=== PATIENT | male | born 1980 | race Caucasian/White ===

== ENCOUNTER 2019-05-06 09:53 | Emergency (ER) | payer MEDICAID, OTHER ==
[~2019-05-06] VITALS: Ht 170.2 cm; Wt 70.0 kg
[~2019-05-06 09:53] MED LIST: IBUP-1984 PO
[2019-05-06 11:46] VITALS: BP 123/79
== END 2019-05-06 12:34 | disposition home or self-care (01) ==
LOC: ER 09:53
DX: R10.31 Right lower quadrant pain (principal); R10.32 Left lower quadrant pain; G89.29 Other chronic pain; F10.99 Alcohol use, unspecified with unspecified alcohol-induced disorder; Z88.5 Allergy status to narcotic agent; Z79.899 Other long term (current) drug therapy; Y90.9 Presence of alcohol in blood, level not specified
CPT/HCPCS: 76705; 99284

== ENCOUNTER 2019-08-01 10:53 | Emergency (ER) | payer MEDICAID ==
[~2019-08-01] VITALS: Ht 154.9 cm; Wt 68.0 kg
[2019-08-01 11:09] VITALS: BP 137/93
== END 2019-08-01 11:58 | disposition left against medical advice (07) ==
LOC: ER 10:54
DX: Z00.8 Encounter for other general examination (principal); Z53.21 Procedure and treatment not carried out due to patient leaving prior to being seen by health care provider

== ENCOUNTER 2019-09-10 07:28 | Day surgery (SDC) | payer MEDICAID ==
[2019-09-06 11:05] LABS: BASOPHILS # (AUTO) 0.1 X10'3 (0-0.2); EOSINOPHILS # (AUTO) 0.2 X10'3 (0-0.9); EOSINOPHILS % (AUTO) 1.7 % (0-6); LYMPHOCYTES # (AUTO) 2.5 X10'3 (1.1-4.8); LYMPHOCYTES % (AUTO) 26.9 % (21-51); MEAN CORPUSCULAR HEMOGLOBIN 30.9 PG (27.0-31.0); MEAN CORPUSCULAR HGB CONC 33.8 g/dL (33.0-36.5); MEAN CORPUSCULAR VOLUME 91.4 FL (78-98); MEAN PLATELET VOLUME 8.4 FL (7.4-10.4); MONOCYTES # (AUTO) 0.9 X10'3 (0-0.9); MONOCYTES % (AUTO) 10.1 % (2-12); NEUTROPHILS # (AUTO) 5.6 X10'3 (1.8-7.7); NEUTROPHILS % (AUTO) 60.3 % (42-75); PRE OP HEMATOCRIT 41.4 % (42.0-52.0); PRE OP PLATELET COUNT 314 X10'3 (140-440); RED BLOOD COUNT 4.53 X10'6 (4.70-6.10); RED CELL DISTRIBUTION WIDTH 13.1 % (11.5-14.5)
[2019-09-06 11:18] LABS: ALBUMIN 3.9 G/DL (3.4-5.0); ALBUMIN/GLOBULIN RATIO 1.1 (1.1-1.5); ALKALINE PHOSPHATASE 84 IU/L (46-116); BLOOD UREA NITROGEN 16 MG/DL (7-18); BUN/CREATININE RATIO 16.3 (5.4-32.0); CALCIUM 8.5 MG/DL (8.5-10.1); CHLORIDE 106 MMOL/L (99-107); CREATININE 0.98 MG/DL (0.60-1.10); PRE OP ALT 27 U/L (30-65); PRE OP ANION GAP 3 (8-16); PRE OP AST 17 U/L (10-37); PRE OP BILIRUB, TOTAL 0.2 MG/DL (0.0-1.0); PRE OP GLUCOSE 109 MG/DL (70-104); PRE OP SODIUM 139 MMOL/L (135-145); TOTAL CARBON DIOXIDE 30.2 MMOL/L (24-32); TOTAL PROTEIN 7.3 G/DL (6.4-8.2); eGFR 85 ML/MIN
[~2019-09-10] VITALS: Ht 171.4 cm; Wt 70.0 kg
[2019-09-10] VITALS (9 sets, daily range): BP systolic 111–135; BP diastolic 71–96
[~2019-09-10 07:28] MED LIST changes: +BUPIVAcaine/PF 2.5 mg/ml (0.25%) 30ml vial ONE; +LIDOcaine 1% 30ml preserv. free vial ONE; +famotidine 10mg tablet PO ONE
[2019-09-10] MEDS: ringers solution, lacted 1,000 ML IV SCH ×2 (07:43→08:10)
[2019-09-10] MEDS ORDERED: ceFAZolin 2gm in dextrose, iso 100 ML IV ONE (07:55)
[2019-09-10] MEDS ORDERED: ringers solution, lacted 1,000 ML IV SCH (08:27)
[2019-09-10] MEDS ORDERED: meperidine/PF 25mg/ml syringe IV PRN ×3 (08:30)
[2019-09-10] MEDS ORDERED: proCHLORperazine 10 MG/2 ml inj IV PRN (08:30)
[2019-09-10] MEDS ORDERED: ondansetron/PF 4mg/2ml inj IV PRN (08:30)
[2019-09-10] MEDS ORDERED: morphine 4 MG/ML inj SYRINge IV PRN ×2 (08:30)
[2019-09-10] MEDS ORDERED: sevoflurane 250ml liquid IH ONE (08:54)
[2019-09-10] MEDS ORDERED: midazolam 2 mg/2 ml injection ONE (09:01)
[2019-09-10] MEDS ORDERED: fentaNYL/PF 50MCG/1 ML 2ML syringe ONE (09:01)
[2019-09-10] MEDS ORDERED: propofol inj 20 ML IV ONE (09:53)
[2019-09-10] MEDS ORDERED: rocuronium 10mg/ml inj IV ONE (09:53)
[2019-09-10] MEDS ORDERED: dexamethasone sod phosphate 4mg/ml inj. ONE (09:53)
[2019-09-10] MEDS ORDERED: ondansetron/PF 4mg/2ml inj ONE (09:53)
[2019-09-10] MEDS ORDERED: neostigmine methylsulfate 1 MG/ML 10ml vial ONE (10:02)
[2019-09-10] MEDS ORDERED: glycopyrrolate 0.2mg/ml inj ONE (10:02)
--- NOTE | 2019-09-10 10:25 | NUR ---
Received from OR via BED , accompanied by Anesthesiologist DR TRIPLETT and report given by Anesthesiolgist. PATIENT WAKING UP, DENIES PAIN, V/S WNL, NEUROVASCULAR CHECKS INTACT, 20G PIV LUE, SCD ON, BANDAIDS TO LAP SIGHTS OF ABDOMEN CDI.
[2019-09-10] MEDS ORDERED: HYDROcodone/acetaminophen 5mg/325mg tablet PO PRN (10:35)
[2019-09-10] MEDS ORDERED: acetaminophen 1,000mg/100ml IV 100 ML IV ONE (10:35)
[2019-09-10] MEDS ORDERED: ibuprofen tablet 400 MG TABLET PO ONE (10:35)
--- NOTE | 2019-09-10 11:25 | NUR ---
PATIENT A&OX4, DENIES PAIN, V/S WNL, NEUROVASCULAR CHECKS INTACT, 20G PIV LUE D/C, SCD OFF, BANDAIDS TO LAP SIGHTS OF ABDOMEN CDI.. I HAVE REVIEWED D/C INSTRUCTIONS WITH PATIENT AND FAMILY HAVE VERBALIZED UNDERSTANDING.PATIENT WAS D/C HOME WITH ALL BELONGINGS AND FAMILY GAVE TRANSPORT HOME.
== END 2019-09-10 11:25 | disposition home or self-care (01) ==
LOC: PAS 07:28
PROVIDERS: ATTEND Surgery
DX: K40.90 Unilateral inguinal hernia, without obstruction or gangrene, not specified as recurrent (principal); Z88.5 Allergy status to narcotic agent; Z87.891 Personal history of nicotine dependence; Z79.899 Other long term (current) drug therapy
CPT/HCPCS: 36415; 49650; 80053; 82948; 85025; 93005; C1781; J0131; J1100; J2001; J2250; J2405; J2704; J2710; J3010; J3490; S2900; A4215; A4618; J7120

== ENCOUNTER 2022-04-29 20:47 | Emergency (ER) | payer MEDICAID ==
[~2022-04-29] VITALS: Ht 170.2 cm; Wt 72.7 kg
[~2022-04-29 20:47] MED LIST changes: -BUPIVAcaine/PF 2.5 mg/ml (0.25%) 30ml vial ONE; -LIDOcaine 1% 30ml preserv. free vial ONE; -famotidine 10mg tablet PO ONE
[2022-04-29 21:08] VITALS: BP 154/93
--- NOTE | 2022-04-29 22:04 | NUR ---
PT INSTRUCTED TO REMOVE PANTS SO MD CAN PREFORM AN EXAMINATION. PT STATED HE ISNT GOINGTO DO THAT AND SAID HE WAS LEAVING. PT ELOPED MD INFORMED
== END 2022-04-29 22:11 | disposition left against medical advice (07) ==
LOC: ER 20:49
DX: R10.32 Left lower quadrant pain (principal); Z53.21 Procedure and treatment not carried out due to patient leaving prior to being seen by health care provider